=== PATIENT | female | born 1940 | race African-American/Black ===

== ENCOUNTER 2016-04-09 00:19 | Inpatient (IN) | payer MEDICARE ==
[~2016-04-09] VITALS: Ht 162.6 cm; Wt 54.4 kg
[2016-04-09] MEDS ORDERED: DEXTROSE 50%-WATER 50 ML DISP.SYRIN IV ONE (00:30)
[2016-04-09] MEDS ORDERED: DEXTROSE 50%-WATER 50 ML DISP.SYRIN ONE ×3 (00:35→01:18)
[2016-04-09 01:06] LABS: BASOPHILS # (AUTO) 0.2 /CMM (0.0-0.2); DIFF TOTAL % 100 %; EOSINOPHILS % (AUTO) 0.5 % (0.0-6.0); HEMATOCRIT 28 % (33-45); HEMOGLOBIN 8.8 g/dL (11.5-14.8); LYMPHOCYTES # (AUTO) 1.1 /CMM (0.8-4.8); LYMPHOCYTES % (AUTO) 14.1 % (20.0-44.0); MEAN CORPUSCULAR HEMOGLOBIN 27 PG (26.0-33.0); MEAN CORPUSCULAR HGB CONC 31 g/dl (31.0-36.0); MEAN CORPUSCULAR VOLUME 86 fL (82-100); MONOCYTES # (AUTO) 0.7 /CMM (0.1-1.30); MONOCYTES % (AUTO) 8.9 % (2.0-12.0); NEUTROPHILS % (AUTO) 74.5 % (43.0-81.0); PLATELET COUNT (AUTO) 234 /CMM (150-450); RED BLOOD CELL COUNT(AUTO) 3.29 MIL/uL (4.0-5.2); WHITE BLOOD COUNT (AUTO) 8.1 K/uL (4.3-11.0)
[2016-04-09] MEDS ORDERED: IV SET PRIMARY 1 EA INFUS.SET MC ONE ×2 (01:13→01:23)
[2016-04-09] MEDS ORDERED: IV NS 0.9% 500 ML IV ONE (01:13)
[2016-04-09 01:17] LABS: TROPONIN I 0.065 ng/mL (0.00-0.056)
[2016-04-09 01:19] LABS: ANION GAP 10 (5-14); CALCIUM, SERUM 8.4 mg/dL (8.5-10.1); CARBON DIOXIDE 32 mmol/L (21-32); CHLORIDE 106 mmol/L (98-107); CREATININE 1.1 mg/dL (0.6-1.3); GLUCOSE 112 mg/dL (74-106); POTASSIUM 3.7 mmol/L (3.5-5.1); SODIUM SERUM 144 mmol/L (136-145); UREA NITROGEN, BLOOD 22 mg/dL (7-18)
[2016-04-09 01:21] LABS: INR 0.94 (0.87-1.13); PROTHROMBIN TIME 10.2 SECS (9.5-12.7)
[2016-04-09 01:23] LABS: ACETAMINOPHEN 0 ug/ml (10-30); ALANINE AMINOTRANSFERASE 18 U/L (12-78); ALBUMIN 3.1 g/dL (3.4-5.0); ASPARTATE AMINOTRANSFERASE 21 U/L (15-37); BILIRUBIN,DIRECT 0.1 mg/dL (0.0-0.2); BILIRUBIN,TOTAL 0.3 mg/dL (0.2-1.0); INDIRECT BILIRUBIN 0.2 mg/dL (0.0-1.1); SALICYLATE 1.2 mg/dL (2.8-20.0); THYROID STIMULATING HORMONE 0.158 uIU/mL (0.358-3.74); TOTAL PROTEIN, SERUM 6.7 g/dL (6.4-8.2)
[2016-04-09] MEDS ORDERED: OCTREOTIDE 100 MCG/ML VIAL ONE ×2 (01:23→01:28)
[2016-04-09] MEDS ORDERED: IV NS 0.9% 50 ML IV ONE (01:23)
[2016-04-09] MEDS ORDERED: OCTREOTIDE 500 MCG/ML VIAL ONE (01:28)
[2016-04-09] MEDS ORDERED: IV NS 0.9% 250 ML IV ONE (01:29)
[2016-04-09] MEDS ORDERED: IV SET PRIMARY PUMP SET 1 EA INFUS.SET MC ONE ×2 (01:29→02:16)
[2016-04-09] MEDS ORDERED: DEXTROSE 50%-WATER 50 ML DISP.SYRIN IVP ONE ×2 (01:30→02:00)
[2016-04-09] MEDS ORDERED: OCTREOTIDE 50 MCG in IV NS 0.9% 50 ML IV ONE (01:30)
[2016-04-09] MEDS ORDERED: OCTREOTIDE 1,250 MCG in IV NS 0.9% 247.5 ML IV PRN ×2 (01:30→11:00)
[2016-04-09] MEDS ORDERED: IV NS 0.9% 1,000 ML BAG IV ONE (02:00)
[2016-04-09] MEDS ORDERED: IV 10% DEXTROSE 1,000 ML IV ONE (02:16)
[2016-04-09] MEDS ORDERED: ASPIRIN 325 MG TABLET PO ONE (02:30)
[2016-04-09] MEDS ORDERED: IV 10% DEXTROSE 1,000 ML IV PRN ×2 (02:30→11:00)
[2016-04-09] MEDS ORDERED: ASPIRIN 325 MG TABLET ONE (02:36)
[2016-04-09 03:04] LABS: KETONES,URINE NEGATIVE (NEGATIVE); LEUKOCYTE ESTERASE ,URINE 1+ (NEGATIVE); PH,URINE 6.5 (5.0-8.0)
[2016-04-09 03:13] LABS: ADD UA MICROSCOPIC YES
[2016-04-09 03:16] LABS: ADD URINE CULTURE YES
[2016-04-09] MEDS ORDERED: MAGNESIUM HYDROXIDE 30 ML UDC PO PRN (04:30)
[2016-04-09] MEDS ORDERED: ONDANSETRON HCL/PF 4 MG/2 ML VIAL IVP PRN (04:30)
[2016-04-09] MEDS ORDERED: ACETAMINOPHEN 325 MG TABLET PO PRN (04:30)
[2016-04-09] MEDS ORDERED: MAG HYDROX/AL HYDROX/SIMETH 30 ML UDC PO PRN (04:30)
[2016-04-09 05:00] VITALS: BP 177/78
[2016-04-09] MEDS ORDERED: hydrALAZINE HCL IV 20 MG VIAL ONE (05:43)
[2016-04-09] MEDS ORDERED: DEXTROSE 50%-WATER 50 ML DISP.SYRIN IVP PRN (06:00)
[2016-04-09] MEDS ORDERED: hydrALAZINE HCL IV 20 MG VIAL IV PRN (06:00)
[2016-04-09 08:00] VITALS: BP 137/59
[2016-04-09] MEDS: PANTOPRAZOLE 40 MG TABLET.DR PO SCH (09:20)
[2016-04-09] MEDS: ASPIRIN 81 MG TAB.CHEW PO SCH (09:20)
[2016-04-09 11:42] LABS: IRON, SERUM 18 ug/dl (50-175); PERCENT SATURATION 6 % (14-33); TOTAL IRON BINDING CAPACITY 287 ug/dl (250-450)
[2016-04-09 12:00] VITALS: BP 144/71
[2016-04-09] MEDS ORDERED: K PHOS NEUTRAL 250 MG TABLET PO ONE (12:30)
[2016-04-09] MEDS: BLOOD SUGAR DIAGNOSTIC 1 EACH STRIP IN SCH ×3 (13:17→22:00)
[2016-04-09 16:00] VITALS: BP 103/54
[2016-04-09] MEDS ORDERED: HALOPERIDOL LACTATE INJ 5 MG/ML VIAL IM PRN (18:30)
[2016-04-09] MEDS: HALOPERIDOL LACTATE INJ 5 MG/ML VIAL IM PRN (19:52)
[2016-04-10] VITALS (8 sets, daily range): BP systolic 91–133; BP diastolic 62–88
[2016-04-10] MEDS: HALOPERIDOL LACTATE INJ 5 MG/ML VIAL IM PRN (03:50)
[2016-04-10] MEDS: BLOOD SUGAR DIAGNOSTIC 1 EACH STRIP IN SCH ×4 (07:30→21:22)
[2016-04-10] MEDS: PANTOPRAZOLE 40 MG TABLET.DR PO SCH (07:55)
[2016-04-10] MEDS: ASPIRIN 81 MG TAB.CHEW PO SCH (07:55)
[2016-04-10] MEDS ORDERED: OLANZAPINE 5 MG/TAB.RAPDIS PO SCH (22:00)
[2016-04-11 05:19] LABS: T3, FREE 1.6 pg/mL (2.0-4.4)
[2016-04-11] MEDS: BLOOD SUGAR DIAGNOSTIC 1 EACH STRIP IN SCH ×2 (05:23→11:42)
[2016-04-11 08:00] VITALS: BP 136/87
[2016-04-11] MEDS: ASPIRIN 81 MG TAB.CHEW PO SCH (08:06)
[2016-04-11] MEDS: PANTOPRAZOLE 40 MG TABLET.DR PO SCH (08:06)
[2016-04-11 12:00] VITALS: BP 131/85
== END 2016-04-11 16:34 | disposition home or self-care (01) | DRG 640 ==
LOC: EDSEX 00:20 → ER 00:20 → TELE-TD 04:30 → TELE1 09:00
PROVIDERS: ADMIT Nurse Practitioner Acute Care; ATTEND Nurse Practitioner Acute Care
DX: E16.2 Hypoglycemia, unspecified (principal); I21.4 Non-ST elevation (NSTEMI) myocardial infarction; E44.0 Moderate protein-calorie malnutrition; E04.9 Nontoxic goiter, unspecified; F29 Unspecified psychosis not due to a substance or known physiological condition; D63.8 Anemia in other chronic diseases classified elsewhere; Z91.19 Patient's noncompliance with other medical treatment and regimen; I10 Essential (primary) hypertension; E88.09 Other disorders of plasma-protein metabolism, not elsewhere classified; E03.9 Hypothyroidism, unspecified; F43.20 Adjustment disorder, unspecified; Z68.20 Body mass index [BMI] 20.0-20.9, adult; R93.5 Abnormal findings on diagnostic imaging of other abdominal regions, including retroperitoneum
CPT/HCPCS: 36415; 71010-TC; 80048-TC; 80061-TC; 80076-TC; 81000-TC; 82533; 82962-TC; 83540-TC; 83735-TC; 84100-TC; 84439-TC; 84443-TC; 84481; 84484-TC; 85025-TC; 85730-TC; 87081-TC; 87086-TC; 87186-TC; A4216; A4606; G6038-TC; G6039-TC; G6040-TC; J0360; J1630; J2354; J3490; J7040; J7050; Z7610

== ENCOUNTER 2017-03-08 21:11 | Inpatient (IN) | payer MEDICARE ==
[~2017-03-08] VITALS: Ht 162.6 cm; Wt 64.0 kg
[2017-03-08] MEDS ORDERED: ACETAMINOPHEN 325 MG TABLET PO PRN (21:30)
[2017-03-08] MEDS ORDERED: MAGNESIUM HYDROXIDE 30 ML UDC PO PRN (21:30)
[2017-03-08] MEDS ORDERED: MAG HYDROX/AL HYDROX/SIMETH 30 ML UDC PO PRN (21:30)
--- NOTE | 2017-03-08 21:40 | NUR ---
ADMITTED DIRECTLY FROM [facility], CAME TO THE UNIT AT 2140 VIA GURNEY ACCOMPANIED BY 2 PARAMEDICS. PATIENT ADMITTED ON 5150 HOLD FOR GD. UPON FACE TO FACE PATIENT WAS FOUND AT THE BUS STATION [place], MALODOROUS, DISHEVELED. YELLING AND SCREAMING AND HAS NO PLAN FOR SELF CARE. PATIENT IS ALERT, AWAKE, VERY UNCOOPERATIVE, REFUSED TO ANSWER QUESTIONNAIRES, UNABLE TO OBTAIN PERTINENT INFORMATIONS. REFUSED SKIN ASSESSMENT, AND REFUSED PHOTO TAKEN. REFUSED CARE. RESPIRATION EVEN, BREATHING PATTERN NON-LABORED, NO APPARENT DISTRESS NOTED. SHOWS NO S/S OF ANY PAIN. PATIENT IS UNDER THE PSYCHIATRIC CARE OF DR. GONZALEZ AND UNDER THE MEDICAL CARE OF DR. GUTHRIE. BELONGINGS WERE INVENTORIED AND CHECKED FOR CONTRABAND. VALUABLES PLACED ON THE SAFE. DR. GUTHRIE NOTIFIED OF ADMISSION, , MED RECON DONE. CALLED HER SON 3X, TELEPHONE NON-WORKING. UNABLE TO LEAVE A MESSAGE ABOUT HER ADMISSION TO THE UNIT. BED LOCKED AND PLACED ON LOWEST POSITION. WILL CONTINUE TO MONITOR Q 15 MINS. TO MAINTAIN SAFETY.
[2017-03-08] MEDS ORDERED: LISI40TA4 PO (23:22)
[2017-03-08] MEDS ORDERED: FLUT1DIS3 IH (23:22)
[2017-03-08] MEDS ORDERED: RANI150C4 PO (23:22)
[2017-03-08] MEDS ORDERED: NITR0.4T48 SL (23:22)
[2017-03-08] MEDS ORDERED: ASPI-1169 PO (23:22)
[2017-03-08] MEDS ORDERED: TRAM50TA2 PO (23:22)
[2017-03-08] MEDS ORDERED: HYDR-552 PO (23:22)
[2017-03-08] MEDS ORDERED: METO2.5T2 PO (23:22)
--- NOTE | 2017-03-09 00:11 | NUR ---
CALLED PATIENT'S SON, AMY AT [phone], THE NUMBER IS A NON-WORKING NUMBER.
[2017-03-09] MEDS ORDERED: NITROGLYCERIN 0.4 MG/TAB BOTTLE SL PRN (01:00)
[2017-03-09] MEDS ORDERED: HYDROCODONE/APAP 5/325MG 1 EACH TABLET ONE (01:53)
[2017-03-09] MEDS: HYDROCODONE/APAP 5/325MG 1 EACH TABLET PO PRN ×3 (01:59→21:47)
--- NOTE | 2017-03-09 02:01 | NUR ---
AWAKE, IRRITABLE, GRIMACING, C/O BACK PAIN, 6/10 ON PAIN SCALE. NORCO 5/325 MG PO GIVEN.
--- NOTE | 2017-03-09 06:22 | NUR ---
PATIENT STILL REFUSING CARE THIS MORNING.
[2017-03-09 08:00] VITALS: BP 120/77
[2017-03-09] MEDS ORDERED: FLUTICASONE/SALMETEROL DISKUS IH SCH (09:00)
[2017-03-09] MEDS: FAMOTIDINE (20 MG) 20 MG TABLET PO SCH ×2 (09:15→21:03)
[2017-03-09] MEDS: METOLAZONE 2.5 MG TABLET PO SCH (09:15)
[2017-03-09] MEDS: LISINOPRIL (10MG) 10 MG TABLET PO SCH (09:15)
[2017-03-09] MEDS: clonazePAM 0.5 MG TABLET PO PRN (09:15)
--- NOTE | 2017-03-09 09:15 | NUR ---
RN NOTES ADMINISTERED KLONOPIN 0.5 MG PO PRN FOR YELLING, PARANOID, IRRITABLE, HARD TO FOLLOW DIRECTION, BP-120/50, P-77, ALSO ADMINISTERED SCHEDULED MEDICATION, SAFETY PRECAUTION MAINTAINED ALL THE TIME. CALL LIGHT WITHIN TO REACH.
[2017-03-09] MEDS: ASPIRIN 81 MG TAB.CHEW PO SCH (09:16)
[2017-03-09] MEDS: FLUTICASONE/VILANTEROL 1 EACH BLST.W.DEV IH SCH (09:22)
--- NOTE | 2017-03-09 09:42 | NUR ---
RN NOTES MRSA OF NARES SWAB TAKEN, CALLED LAB FOR FULL CHARGE BOOKKEEPER.
--- NOTE | 2017-03-09 11:20 | NUR ---
Initial Discharge Plan: Patient's address is listed on face sheet as [address] [place] [address]. Patient does not wish to discuss where she lives, nor does she want alternative placement. Patient provided SW with the following number: [phone]. SW called the number and the number was connected to nephew, Babar. Babar stated that he had not seen his aunt for the past three months and that no one had any contact with her. SW to follow up with MD and facilitate safe and proper discharge.
[2017-03-09] MEDS: OLANZAPINE 2.5 MG TABLET PO SCH ×2 (12:30→17:23)
--- NOTE | 2017-03-09 13:17 | NUR ---
RN NOTES PATIENT COMPLAINING OF GENERALIZED PAIN 10/26 , ADMINISTERED NARCO 5/325 MG PO PRN PER PATIENT REQUEST, V/S TAKEN BP-120/62, P-77, ENCOURAGED TO INCREASE FLUID INTAKE. CONTINUED MONITORING.
[2017-03-09 16:07] VITALS: BP 139/66
[2017-03-09 20:00] VITALS: BP 141/96
--- NOTE | 2017-03-09 20:05 | NUR ---
PATIENT AWAKE, ALERT, ORIENTED X2-3. UNCOOPERATIVE WITH HER CARE, YELLS AND SCREAMS AT STAFF.
[2017-03-10 08:06] VITALS: BP 84/52
[2017-03-10] MEDS: METOLAZONE 2.5 MG TABLET PO SCH (09:08)
[2017-03-10] MEDS: FAMOTIDINE (20 MG) 20 MG TABLET PO SCH ×2 (09:09→21:13)
[2017-03-10] MEDS: clonazePAM 0.5 MG TABLET PO PRN ×2 (09:09→21:37)
[2017-03-10] MEDS: OLANZAPINE 2.5 MG TABLET PO SCH ×3 (09:09→17:32)
[2017-03-10] MEDS: ASPIRIN 81 MG TAB.CHEW PO SCH (09:09)
[2017-03-10] MEDS: LISINOPRIL (10MG) 10 MG TABLET PO SCH (09:09)
--- NOTE | 2017-03-10 09:09 | NUR ---
RN NOTES ADMINISTERED KLONOPIN 0.5 MG PO PRN FOR ANXIETY, YELLING,PARANOID, V/S TAKEN BP- 120/65, P-94, CONTINUED MONITORING.
[2017-03-10] MEDS: FLUTICASONE/VILANTEROL 1 EACH BLST.W.DEV IH SCH (09:14)
[2017-03-10] MEDS: HYDROCODONE/APAP 5/325MG 1 EACH TABLET PO PRN ×2 (11:47→18:30)
--- NOTE | 2017-03-10 11:47 | NUR ---
RN NOTES ADMINISTERED NARCO 5/325 MG PO PRN FOR GENERALIZED PAIN 10/26, PER PATIENT REQUEST, V/S TAKEN BP -101/50, P-75. CONTINUED MONITORING. ENCOURAGED TO INCREASE FLUID INTAKE.
--- NOTE | 2017-03-10 12:37 | NUR ---
CALLED GILLIAN AT [phone] AN INTERPRETER FOR THE [employer] FOR [employer]TR[employer] AND SAID SHE WILL COME TODAY.
[2017-03-10 13:41] LABS: HEMATOCRIT 35 % (33-45); HEMOGLOBIN 10.4 g/dL (11.5-14.8); MEAN CORPUSCULAR HEMOGLOBIN 24 PG (26.0-33.0); MEAN CORPUSCULAR HGB CONC 30 g/dl (31.0-36.0); MEAN CORPUSCULAR VOLUME 79 fL (82-100); PLATELET COUNT (AUTO) 194 /CMM (150-450); RDW COEFFICIENT OF VARIATION 17.3 (11.5-15.0); WHITE BLOOD COUNT (AUTO) 8.6 K/uL (4.3-11.0)
[2017-03-10 14:17] LABS: ALANINE AMINOTRANSFERASE 17 U/L (12-78); ALBUMIN 2.4 g/dL (3.4-5.0); ALKALINE PHOSPHATASE 64 U/L (46-116); ASPARTATE AMINOTRANSFERASE 17 U/L (15-37); BILIRUBIN,TOTAL 0.4 mg/dL (0.2-1.0); CALCIUM, SERUM 8.9 mg/dL (8.5-10.1); CARBON DIOXIDE 31 mmol/L (21-32); CHLORIDE 101 mmol/L (98-107); CREATININE 1.1 mg/dL (0.6-1.3); GLUCOSE 115 mg/dL (74-106); POTASSIUM 3.1 mmol/L (3.5-5.1); SODIUM SERUM 138 mmol/L (136-145); TOTAL PROTEIN, SERUM 7.3 g/dL (6.4-8.2); UREA NITROGEN, BLOOD 25 mg/dL (7-18)
[2017-03-10 14:20] LABS: LYMPHOCYTES % (MANUAL) 24 % (16-48); MONOCYTES % (MANUAL) 7 % (0-11.0); NEUTROPHILS % (MANUAL) 69 (42-76)
--- NOTE | 2017-03-10 15:00 | NUR ---
RN NOTES PAGED Dr. COLUNGA BECAUSE OF GET LOW LAB RESULT POTASSIUM LEVEL IS 3.1. WAITING CALL BACK. AND GET ORDER FOR COVERAGE FROM PHARMACIST DORA Gomez STEFANO X1.
[2017-03-10 16:00] VITALS: BP 116/67
[2017-03-10] MEDS: POTASSIUM CHLORIDE 20 MEQ TAB.PRT.SR PO SCH (17:32)
--- NOTE | 2017-03-10 18:30 | NUR ---
rn notes administered narco 5/325 mg po prn for chronic generalized pain 10/26, per patient request, v/s taken bp -116/67, p-89, encouraged to increase fluid intake, continued monitoring.
[2017-03-10 20:00] VITALS: BP 104/60
[2017-03-11] MEDS: TEMAZEPAM 7.5 MG CAPSULE PO PRN ×2 (00:43→23:31)
[2017-03-11 08:00] VITALS: BP 114/75
[2017-03-11] MEDS: METOLAZONE 2.5 MG TABLET PO SCH (08:53)
[2017-03-11] MEDS: OLANZAPINE 2.5 MG TABLET PO SCH (08:53)
[2017-03-11] MEDS: ASPIRIN 81 MG TAB.CHEW PO SCH (08:54)
[2017-03-11] MEDS: FAMOTIDINE (20 MG) 20 MG TABLET PO SCH ×2 (08:54→21:12)
[2017-03-11] MEDS: LISINOPRIL (10MG) 10 MG TABLET PO SCH (08:54)
[2017-03-11] MEDS: clonazePAM 0.5 MG TABLET PO PRN (08:57)
--- NOTE | 2017-03-11 09:00 | NUR ---
GPS/RN-NOTES NOTED PATIENT WITH AGGRESSIVE BEHAVIOR , HITTING STAFF WITH BOTH HANDS,RESISTIVE TO CARE. KLONOPIN 0.5MG P.O GIVEN PRN ORDER. WILL CONT. MONITORING FOR SAFETY AND BEHAVIOR.
[2017-03-11] MEDS: FLUTICASONE/VILANTEROL 1 EACH BLST.W.DEV IH SCH (09:09)
[2017-03-11] MEDS ORDERED: LORAZEPAM INJ 2 MG/ML VIAL IM ONE (11:00)
[2017-03-11] MEDS ORDERED: HALOPERIDOL LACTATE INJ 5 MG/ML VIAL IM ONE (11:00)
[2017-03-11] MEDS ORDERED: BENZTROPINE MESYLATE (2MG/2ML) 2 MG/2 ML AMPUL IM ONE (11:00)
--- NOTE | 2017-03-11 11:17 | NUR ---
GPS/RN-NOTES NOTED PATIENT UN COOPERATIVE WITH CARE , AGGRESSIVE TOWARDS STAFF HITTING WITH BOTH HANDS,KICKING AND SPITTING,UNABLE TO REDIRECT PATIENT. DR. HICKS IN THE UNIT WITH ORDERS OF ATIVAN 1MG IM,COGENTIN 1MG IM AND HALDOL 5MG IM X1. THREE STAFF HELP TO ADMINISTERED MEDICATIONS DUE TO AGGRESSIVE BEHAVIOR,ADMINISTERED ON LEFT DELTOID. WILL CONT. MONITORING FOR SAFETY AND BEHAVIOR.
--- NOTE | 2017-03-11 12:00 | NUR ---
GPS/RN-NOTES UNABLE TO DO IN AND OUT CATH. DUE TO PATIENT BEHAVIOR, AGGRESSIVE AND COMBATIVE. WILL TRY AGAIN LATER.
[2017-03-11 16:07] VITALS: BP 99/59
[2017-03-11] MEDS: BENZTROPINE MESYLATE (1 MG) 1 MG TABLET PO SCH (17:47)
[2017-03-11] MEDS: risperiDONE-M 0.5 MG TAB.RAPDIS PO SCH (17:47)
--- NOTE | 2017-03-11 18:01 | NUR ---
GPS/RN-NOTES STILL UNABLE TO DO IN AND OUT CATH. PATIENT GETS AGGRESSIVE AND COMBATIVE. WILL ENDORSE TO INCOMING NURSE FOR CONTINUITY OF CARE.
[2017-03-11 19:48] VITALS: BP 99/60
[2017-03-12 03:43] VITALS: BP 105/65
--- NOTE | 2017-03-12 06:21 | NUR ---
GPS/RN-NOTES DURING SHIFT ,STILL UNABLE TO DO IN AND OUT CATH. PATIENT GETS AGGRESSIVE AND COMBATIVE. WILL ENDORSE TO INCOMING NURSE FOR CONTINUITY OF CARE.
[2017-03-12 08:00] VITALS: BP 109/74
[2017-03-12] MEDS: LISINOPRIL (10MG) 10 MG TABLET PO SCH (09:00)
[2017-03-12] MEDS: FLUTICASONE/VILANTEROL 1 EACH BLST.W.DEV IH SCH (09:47)
[2017-03-12] MEDS: FAMOTIDINE (20 MG) 20 MG TABLET PO SCH ×2 (09:49→21:12)
[2017-03-12] MEDS: ASPIRIN 81 MG TAB.CHEW PO SCH (09:49)
[2017-03-12] MEDS: risperiDONE-M 0.5 MG TAB.RAPDIS PO SCH (09:49)
[2017-03-12] MEDS: METOLAZONE 2.5 MG TABLET PO SCH (09:49)
[2017-03-12] MEDS: BENZTROPINE MESYLATE (1 MG) 1 MG TABLET PO SCH ×2 (09:49→16:48)
[2017-03-12] MEDS: clonazePAM 0.5 MG TABLET PO PRN (09:49)
--- NOTE | 2017-03-12 11:00 | NUR ---
GPS/RN DR HICKS AND DR COLUNGA MADE AWARE OF NURSERS UNABLE TO COLLECT URINE SPECIMEN. DR COLUNGA WILL START PT ON ANTIBIOTICS EMPIRICALLY
[2017-03-12] MEDS ORDERED: CEPHALEXIN MONOHYDRATE 250 MG CAPSULE PO SCH (13:00)
[2017-03-12] MEDS ORDERED: CEPHALEXIN MONOHYDRATE 500 MG CAPSULE PO SCH (13:37)
[2017-03-12] MEDS: HALOPERIDOL 5 MG TABLET PO SCH ×2 (14:34→16:48)
[2017-03-12] MEDS: CEPHALEXIN MONOHYDRATE 500 MG CAPSULE PO SCH ×2 (14:34→17:09)
[2017-03-12] MEDS: LORAZEPAM 0.5 MG TABLET PO SCH ×2 (14:40→16:48)
[2017-03-12 16:00] VITALS: BP 113/60
[2017-03-12 21:45] VITALS: BP 148/67
[2017-03-13] MEDS: CEPHALEXIN MONOHYDRATE 500 MG CAPSULE PO SCH ×5 (00:03→23:02)
[2017-03-13] MEDS ORDERED: CEPHALEXIN MONOHYDRATE 500 MG CAPSULE PO ONE (05:37)
[2017-03-13] MEDS: FAMOTIDINE (20 MG) 20 MG TABLET PO SCH ×2 (08:35→21:15)
[2017-03-13] MEDS: HALOPERIDOL 5 MG TABLET PO SCH ×2 (08:35→16:47)
[2017-03-13] MEDS: LORAZEPAM 0.5 MG TABLET PO SCH ×2 (08:36→16:47)
[2017-03-13] MEDS: BENZTROPINE MESYLATE (1 MG) 1 MG TABLET PO SCH ×2 (08:36→16:47)
[2017-03-13] MEDS: LISINOPRIL (10MG) 10 MG TABLET PO SCH (08:36)
[2017-03-13] MEDS: METOLAZONE 2.5 MG TABLET PO SCH (08:36)
[2017-03-13] MEDS: FLUTICASONE/VILANTEROL 1 EACH BLST.W.DEV IH SCH (08:37)
[2017-03-13] MEDS: ASPIRIN 81 MG TAB.CHEW PO SCH (08:37)
[2017-03-13] MEDS ORDERED: DIVALPROEX SODIUM 125 MG CAP.SPRINK PO SCH (09:30)
[2017-03-13] MEDS ORDERED: HALOPERIDOL 5 MG TABLET PO ONE (11:00)
--- NOTE | 2017-03-13 11:30 | NUR ---
WOUND CARE CONSULT: PT AGITATED AND REFUSED SKIN ASSESSMENT. PT NOTED TO HAVE DRY ABRASION TO LEFT LOWER LEG AND BRUISE TO RT LOWER LEG. CURRENT TRENT SCORE IS 19.
[2017-03-13] MEDS: DIVALPROEX SODIUM 125 MG CAP.SPRINK PO SCH ×2 (12:08→16:47)
[2017-03-13 16:02] VITALS: BP 107/66
--- NOTE | 2017-03-13 19:30 | NUR ---
GPS RN NOTE, RECEIVED PATIENT AWAKE AND IN BED NO S/S OR COMPLAINTS OF PAIN AT THIS TIME. PATIENT IS DISPLAYING NO S/S OF APPARENT DISTRESS AT THIS TIME. PATIENT BREATHING IS UNLABORED WITH EQUAL RISE AND FALL OF THE CHEST. PATIENT IS ALERT AND ORIENTED X 1 ON ROOM AIR WITH A SPOO2 94 %. PATIENT IS COMPLAINT WITH MEDICATION, CONFUSED, EASILY AGITATED, ANXIOUS AT TIMES, UNCOOPERATIVE, DISORGANIZED, AND NEEDS REORIENTATION. PATIENT DENIES SUICIDE IDEATIONS AND HOMICIDAL IDEATIONS AT THIS TIME. PATIENT ASSISTED WITH TURNING AND REPOSITIONING Q2HR AND PRN FOR COMFORT AND CIRCULATION. PATIENT HAS NO NEEDS AT THIS TIME. PATIENT EDUCATED ON THE USE OF THE CALL LEI. PATIENT BED SIDE RAILS UP X 2 FOR SAFETY. PATIENT BED IS LOCKED AND LOW WILL CONTINUE TO MONITOR AND MAINTAIN SAFETY Q15 MIN WITH THE HELP OF STAFF.
[2017-03-13 19:46] VITALS: BP 100/59
[2017-03-13] MEDS: TEMAZEPAM 7.5 MG CAPSULE PO PRN (21:15)
--- NOTE | 2017-03-13 21:15 | NUR ---
GPS RN NOTE, PATIENT HAS A COMPLAINT OF NOT BEING ABLE TO SLEEP AND IS REQUESTING A SLEEPING AID AT THIA TIME. PATIENT VITAL SIGNS ARE STABLE. GAVE RESTORIL 7.5 MG PO HS ORDERED. WILL REASSESS FOR INSOMNIA AND I WILL CONTINUE TO MONITOR THIS PATIENT.
[2017-03-14] MEDS: CEPHALEXIN MONOHYDRATE 500 MG CAPSULE PO SCH ×4 (05:14→23:57)
[2017-03-14 08:00] VITALS: BP 100/63
[2017-03-14] MEDS: HALOPERIDOL 5 MG TABLET PO SCH ×2 (08:31→16:29)
[2017-03-14] MEDS: ASPIRIN 81 MG TAB.CHEW PO SCH (08:31)
[2017-03-14] MEDS: METOLAZONE 2.5 MG TABLET PO SCH (08:31)
[2017-03-14] MEDS: BENZTROPINE MESYLATE (1 MG) 1 MG TABLET PO SCH ×2 (08:31→16:29)
[2017-03-14] MEDS: DIVALPROEX SODIUM 125 MG CAP.SPRINK PO SCH ×3 (08:31→16:29)
[2017-03-14] MEDS: FAMOTIDINE (20 MG) 20 MG TABLET PO SCH ×2 (08:31→21:15)
[2017-03-14] MEDS: LORAZEPAM 0.5 MG TABLET PO SCH ×2 (08:32→16:29)
[2017-03-14] MEDS: LISINOPRIL (10MG) 10 MG TABLET PO SCH (08:33)
[2017-03-14] MEDS: FLUTICASONE/VILANTEROL 1 EACH BLST.W.DEV IH SCH (08:33)
[2017-03-14 09:25] LABS: CALCIUM, SERUM 9.3 mg/dL (8.5-10.1); CARBON DIOXIDE 29 mmol/L (21-32); CHLORIDE 98 mmol/L (98-107); CREATININE 1.3 mg/dL (0.6-1.3); GLUCOSE 104 mg/dL (74-106); MAGNESIUM 2.3 mg/dL (1.8-2.4); POTASSIUM 3.6 mmol/L (3.5-5.1); SODIUM SERUM 136 mmol/L (136-145); UREA NITROGEN, BLOOD 43 mg/dL (7-18)
[2017-03-14] MEDS: FERROUS SULFATE (325 MG) 325 MG/TAB TABLET PO SCH ×2 (09:27→16:29)
[2017-03-14 09:40] LABS: IRON, SERUM 47 ug/dl (50-175); TOTAL IRON BINDING CAPACITY 366 ug/dl (250-450)
--- NOTE | 2017-03-14 10:00 | NUR ---
RN-CO: OFFERED FLUID INTAKE.
[2017-03-14 11:01] LABS: THYROID STIMULATING HORMONE 0.214 uIU/mL (0.358-3.74)
--- NOTE | 2017-03-14 11:03 | NUR ---
Discharge Planning: SW attempted to have a conversation with patient regarding discharge planning. Patient repeatedly stated that she is "going to [place], [place]." SW redirected her several times. Patient then stated that she did not want any placement and that she was going to go to a motel. Patient became agitated. SW asked patient if she would be open to temporary placement at a facility, where she would receive physical therapy and other rehabilitative services. Patient stated that it might be alright with her, but that she still wanted to go to a motel.
--- NOTE | 2017-03-14 11:06 | NUR ---
Discharge Planning: SW faxed an inquiry to [facility] in admissions at [address] [address] at fax number [phone]. SW to follow up with status of referral.
--- NOTE | 2017-03-14 13:00 | NUR ---
RN-CO: ENCOURAGED FLUID INTAKE.
[2017-03-14 15:50] VITALS: BP 126/72
--- NOTE | 2017-03-14 16:30 | NUR ---
RN-CO: ENCOURAGE FLUID INTAKE.
[2017-03-14 20:20] VITALS: BP 153/78
[2017-03-14] MEDS: TEMAZEPAM 7.5 MG CAPSULE PO PRN (21:15)
[2017-03-15] MEDS: clonazePAM 0.5 MG TABLET PO PRN (05:11)
--- NOTE | 2017-03-15 05:11 | NUR ---
GPS RN NOTE, PATIENT HAS A COMPLAINT OF FEELING ANXIOUS AND IS REQUESTING MEDICATION AT THIS TIME. PATIENT VITAL SIGNS ARE STABLE. GAVE KLONOPIN 0.5MG PO Q4HR PRN ORDERED. WILL REASSESS FOR ANXIETY AND I WILL CONTINUE TO MONITOR THIS PATIENT.
[2017-03-15] MEDS: CEPHALEXIN MONOHYDRATE 500 MG CAPSULE PO SCH ×3 (05:31→18:29)
[2017-03-15 08:00] VITALS: BP 92/60
[2017-03-15] MEDS: BENZTROPINE MESYLATE (1 MG) 1 MG TABLET PO SCH ×2 (08:46→16:07)
[2017-03-15] MEDS: DIVALPROEX SODIUM 125 MG CAP.SPRINK PO SCH ×2 (08:46→12:30)
[2017-03-15] MEDS: METOLAZONE 2.5 MG TABLET PO SCH (08:46)
[2017-03-15] MEDS: HALOPERIDOL 5 MG TABLET PO SCH ×2 (08:46→16:07)
[2017-03-15] MEDS: FERROUS SULFATE (325 MG) 325 MG/TAB TABLET PO SCH ×2 (08:47→16:08)
[2017-03-15] MEDS: LISINOPRIL (10MG) 10 MG TABLET PO SCH (08:47)
[2017-03-15] MEDS: ASPIRIN 81 MG TAB.CHEW PO SCH (08:47)
[2017-03-15] MEDS: FAMOTIDINE (20 MG) 20 MG TABLET PO SCH ×2 (08:47→20:08)
[2017-03-15] MEDS: FLUTICASONE/VILANTEROL 1 EACH BLST.W.DEV IH SCH (09:08)
[2017-03-15] MEDS: LORAZEPAM 0.5 MG TABLET PO SCH (10:04)
--- NOTE | 2017-03-15 11:48 | NUR ---
Discharge Planning: SW was informed by [facility] in admissions that patient was accepted to [address] [address] / fax number [phone].
[2017-03-15 16:00] VITALS: BP 118/66
[2017-03-15] MEDS ORDERED: DIVALPROEX SODIUM 125 MG CAP.SPRINK PO SCH (17:00)
[2017-03-15 20:00] VITALS: BP 142/68
[2017-03-15] MEDS: LORAZEPAM 0.5 MG TABLET PO PRN (20:07)
[2017-03-16] MEDS: CEPHALEXIN MONOHYDRATE 500 MG CAPSULE PO SCH ×4 (06:56→17:05)
[2017-03-16 08:00] VITALS: BP 149/97
[2017-03-16] MEDS: DIVALPROEX SODIUM 125 MG CAP.SPRINK PO SCH ×3 (08:17→17:05)
[2017-03-16] MEDS: ASPIRIN 81 MG TAB.CHEW PO SCH (08:17)
[2017-03-16] MEDS: LISINOPRIL (10MG) 10 MG TABLET PO SCH (08:18)
[2017-03-16] MEDS: METOLAZONE 2.5 MG TABLET PO SCH (08:18)
[2017-03-16] MEDS: BENZTROPINE MESYLATE (1 MG) 1 MG TABLET PO SCH ×2 (08:18→17:04)
[2017-03-16] MEDS: FERROUS SULFATE (325 MG) 325 MG/TAB TABLET PO SCH ×2 (08:21→17:05)
[2017-03-16] MEDS: HALOPERIDOL 5 MG TABLET PO SCH ×2 (08:21→17:04)
[2017-03-16] MEDS: FAMOTIDINE (20 MG) 20 MG TABLET PO SCH ×2 (08:54→20:48)
[2017-03-16] MEDS: FLUTICASONE/VILANTEROL 1 EACH BLST.W.DEV IH SCH (08:57)
[2017-03-16 16:00] VITALS: BP 109/63
[2017-03-16 20:00] VITALS: BP 119/64
[2017-03-17] MEDS: CEPHALEXIN MONOHYDRATE 500 MG CAPSULE PO SCH ×4 (01:57→17:52)
[2017-03-17 08:00] VITALS: BP 114/91
[2017-03-17] MEDS: DIVALPROEX SODIUM 125 MG CAP.SPRINK PO SCH ×3 (09:13→16:44)
[2017-03-17] MEDS: FERROUS SULFATE (325 MG) 325 MG/TAB TABLET PO SCH ×2 (09:13→16:43)
[2017-03-17] MEDS: FLUTICASONE/VILANTEROL 1 EACH BLST.W.DEV IH SCH (09:13)
[2017-03-17] MEDS: FAMOTIDINE (20 MG) 20 MG TABLET PO SCH ×2 (09:13→21:34)
[2017-03-17] MEDS: ASPIRIN 81 MG TAB.CHEW PO SCH (09:13)
[2017-03-17] MEDS: BENZTROPINE MESYLATE (1 MG) 1 MG TABLET PO SCH ×2 (09:14→16:43)
[2017-03-17] MEDS: METOLAZONE 2.5 MG TABLET PO SCH (09:19)
[2017-03-17] MEDS: LISINOPRIL (10MG) 10 MG TABLET PO SCH (09:19)
[2017-03-17] MEDS: HALOPERIDOL 5 MG TABLET PO SCH ×2 (09:19→16:43)
[2017-03-17 11:08] LABS: ALANINE AMINOTRANSFERASE 17 U/L (12-78); ALBUMIN 2.9 g/dL (3.4-5.0); ALKALINE PHOSPHATASE 71 U/L (46-116); ASPARTATE AMINOTRANSFERASE 15 U/L (15-37); BILIRUBIN,TOTAL 0.4 mg/dL (0.2-1.0); CALCIUM, SERUM 9.3 mg/dL (8.5-10.1); CARBON DIOXIDE 33 mmol/L (21-32); CHLORIDE 103 mmol/L (98-107); CREATININE 1.1 mg/dL (0.6-1.3); GLUCOSE 122 mg/dL (74-106); POTASSIUM 4.2 mmol/L (3.5-5.1); SODIUM SERUM 143 mmol/L (136-145); TOTAL PROTEIN, SERUM 8.1 g/dL (6.4-8.2); UREA NITROGEN, BLOOD 33 mg/dL (7-18)
[2017-03-17 11:09] LABS: VALPROIC ACID 45 ug/mL (50-100)
[2017-03-17 11:10] LABS: BASOPHILS % (AUTO) 0.1 % (0.0-2.0); EOSINOPHILS # (AUTO) 0.1 /CMM (0.0-0.7); HEMATOCRIT 33 % (33-45); HEMOGLOBIN 10.2 g/dL (11.5-14.8); LYMPHOCYTES # (AUTO) 1.4 /CMM (0.8-4.8); LYMPHOCYTES % (AUTO) 21.8 % (20.0-44.0); MEAN CORPUSCULAR HEMOGLOBIN 24 PG (26.0-33.0); MEAN CORPUSCULAR HGB CONC 31 g/dl (31.0-36.0); MEAN CORPUSCULAR VOLUME 77 fL (82-100); MONOCYTES # (AUTO) 0.5 /CMM (0.1-1.30); MONOCYTES % (AUTO) 7.3 % (2.0-12.0); NEUTROPHILS # (AUTO) 4.6 /CMM (1.8-8.9); NEUTROPHILS % (AUTO) 69.8 % (43.0-81.0); PLATELET COUNT (AUTO) 455 /CMM (150-450); RDW COEFFICIENT OF VARIATION 16.2 (11.5-15.0); RED BLOOD CELL COUNT(AUTO) 4.26 MIL/uL (4.0-5.2); WHITE BLOOD COUNT (AUTO) 6.6 K/uL (4.3-11.0)
[2017-03-17 16:00] VITALS: BP 106/65
[2017-03-17 20:00] VITALS: BP 111/68
[2017-03-18] MEDS: CEPHALEXIN MONOHYDRATE 500 MG CAPSULE PO SCH ×4 (00:04→17:57)
[2017-03-18 08:00] VITALS: BP 132/75
[2017-03-18] MEDS: HALOPERIDOL 5 MG TABLET PO SCH ×2 (08:57→16:07)
[2017-03-18] MEDS: FLUTICASONE/VILANTEROL 1 EACH BLST.W.DEV IH SCH (08:57)
[2017-03-18] MEDS: ASPIRIN 81 MG TAB.CHEW PO SCH (08:57)
[2017-03-18] MEDS: METOLAZONE 2.5 MG TABLET PO SCH (08:57)
[2017-03-18] MEDS: FAMOTIDINE (20 MG) 20 MG TABLET PO SCH ×2 (08:58→21:46)
[2017-03-18] MEDS: BENZTROPINE MESYLATE (1 MG) 1 MG TABLET PO SCH ×2 (08:58→16:07)
[2017-03-18] MEDS: DIVALPROEX SODIUM 125 MG CAP.SPRINK PO SCH ×3 (08:58→16:07)
[2017-03-18] MEDS: FERROUS SULFATE (325 MG) 325 MG/TAB TABLET PO SCH ×2 (08:58→16:07)
[2017-03-18] MEDS: LISINOPRIL (10MG) 10 MG TABLET PO SCH (08:59)
[2017-03-18 15:56] VITALS: BP 101/60
[2017-03-18 20:37] VITALS: BP 122/62
[2017-03-19] MEDS: CEPHALEXIN MONOHYDRATE 500 MG CAPSULE PO SCH ×5 (00:32→23:02)
--- NOTE | 2017-03-19 05:02 | NUR ---
GPS RN NOTES DURING SHIFT OFFERED TO PT. SLEEPING PILLS AND REFUSED TO TAKE , PT. BEHAVIOR WAS VERY UNCOOPERATIVE.
[2017-03-19 08:00] VITALS: BP 138/68
[2017-03-19] MEDS: FAMOTIDINE (20 MG) 20 MG TABLET PO SCH ×2 (08:53→20:50)
[2017-03-19] MEDS: BENZTROPINE MESYLATE (1 MG) 1 MG TABLET PO SCH ×2 (08:54→17:19)
[2017-03-19] MEDS: LISINOPRIL (10MG) 10 MG TABLET PO SCH (08:54)
[2017-03-19] MEDS: ASPIRIN 81 MG TAB.CHEW PO SCH (08:54)
[2017-03-19] MEDS: METOLAZONE 2.5 MG TABLET PO SCH (08:54)
[2017-03-19] MEDS: DIVALPROEX SODIUM 125 MG CAP.SPRINK PO SCH ×3 (08:54→17:19)
[2017-03-19] MEDS: FERROUS SULFATE (325 MG) 325 MG/TAB TABLET PO SCH ×2 (08:55→17:19)
[2017-03-19] MEDS: FLUTICASONE/VILANTEROL 1 EACH BLST.W.DEV IH SCH (08:55)
[2017-03-19] MEDS: HALOPERIDOL 5 MG TABLET PO SCH ×2 (08:55→17:19)
[2017-03-19 15:54] VITALS: BP 100/71
[2017-03-19 22:03] VITALS: BP 128/65
[2017-03-20] MEDS: CEPHALEXIN MONOHYDRATE 500 MG CAPSULE PO SCH ×3 (05:38→17:08)
[2017-03-20 08:00] VITALS: BP 100/70
--- NOTE | 2017-03-20 08:27 | NUR ---
DISCHARGE NOTE: [facility], [address] [place] [address] / fax number [phone] via ambulance transportation arranged by social work associate through [employer] (formerly [employer]), trip # [id number]. Patient does not have family that is involved in her care / discharge plans. When SW initially spoke with patient's family, she was informed that they are not in contact and "have no idea" what is going on with her. Patient will be followed by efficiency analyst Dr. Malloy [address] [facility] [address], [place] [phone] at the facility. Patient will also be under the care of psychiatrist Dr. Bourne [address] [facility] [address], [place] [address], [phone] Patient was referred to a smoking cessation group [id number] [facility], room [address], [place] [address] and was encourage to present on March 22 at 7pm. Additional resources for smoking cessation included [employer], 800-LUNGUSA and [employer], .
[2017-03-20] MEDS: BENZTROPINE MESYLATE (1 MG) 1 MG TABLET PO SCH ×2 (09:19→17:00)
[2017-03-20] MEDS: ASPIRIN 81 MG TAB.CHEW PO SCH (09:19)
[2017-03-20] MEDS: DIVALPROEX SODIUM 125 MG CAP.SPRINK PO SCH ×3 (09:20→17:00)
[2017-03-20] MEDS: LISINOPRIL (10MG) 10 MG TABLET PO SCH (09:20)
[2017-03-20] MEDS: FERROUS SULFATE (325 MG) 325 MG/TAB TABLET PO SCH ×2 (09:20→17:00)
[2017-03-20] MEDS: FAMOTIDINE (20 MG) 20 MG TABLET PO SCH (09:20)
[2017-03-20] MEDS: METOLAZONE 2.5 MG TABLET PO SCH (09:21)
[2017-03-20] MEDS: FLUTICASONE/VILANTEROL 1 EACH BLST.W.DEV IH SCH (09:21)
[2017-03-20] MEDS: HALOPERIDOL 5 MG TABLET PO SCH ×2 (09:21→17:00)
[2017-03-20] MEDS: LORAZEPAM 0.5 MG TABLET PO PRN (13:29)
--- NOTE | 2017-03-20 13:29 | NUR ---
GPS/RN PATIENT IS RESTLESS AND ANXIOUS, SHOUTING AT STAFF. ADMINISTERED ATIVAN 0.5 MG PO , WILL CONTINUE TO MONITOR.
--- NOTE | 2017-03-20 14:30 | NUR ---
GPS/RN 1700 MEDICATION NOT ADMINISTERED DUE TO PATIENT DISCHARGE. Addendum: 03/20/17 at 1749 by GABI SMITH RN [id number]
[2017-03-20 15:36] VITALS: BP 149/97
--- NOTE | 2017-03-20 16:30 | NUR ---
GPS/RN PATIENT CLEARED FOR DISCHARGE TO [facility] BY DR GONZALEZ AND DR COLUNGA. MEDICATIONS RECONCILED BY BOTH DR'S, PATIENT REFUSED TO SIGN D/C PAPER WORK, COSIGNED BY 2 RN. MEDICATIONS, EXIT CARE PACKET AND AFTERCARE PLAN EXPLAINED TO PATIENT.BELONGINGS AND VALUABLES RETURNED TO PATIENT AND IN THE POSSESSION OF EMT. REPORT CALLED TO FACILITY SPOKE WITH JOHN, FAXED PRESCRIPTIONS TO FACILITY. D/C PICTURE OF LEFT MEDELLIN SKIN TEAR TAKEN, PATIENT DENIES SI/HI/AH UPON DISCHARGE, NO AGITATION AT THIS TIME, PATIENT LEFT UNIT COOPERATIVE WITH NO DISTRESS NOTED AND EMT AT SIDE.
== END 2017-03-20 16:45 | DRG 885 ==
LOC: GPS 21:11
PROVIDERS: ADMIT Psychiatry & Neurology Psychiatry
DX: F31.64 Bipolar disorder, current episode mixed, severe, with psychotic features (principal); I11.0 Hypertensive heart disease with heart failure; N17.0 Acute kidney failure with tubular necrosis; E44.0 Moderate protein-calorie malnutrition; E88.09 Other disorders of plasma-protein metabolism, not elsewhere classified; I48.91 Unspecified atrial fibrillation; I50.32 Chronic diastolic (congestive) heart failure; D50.9 Iron deficiency anemia, unspecified; E05.90 Thyrotoxicosis, unspecified without thyrotoxic crisis or storm; F03.90 Unspecified dementia, unspecified severity, without behavioral disturbance, psychotic disturbance, mood disturbance, and anxiety; G40.909 Epilepsy, unspecified, not intractable, without status epilepticus; I25.10 Atherosclerotic heart disease of native coronary artery without angina pectoris; J44.9 Chronic obstructive pulmonary disease, unspecified; J45.909 Unspecified asthma, uncomplicated; Z68.24 Body mass index [BMI] 24.0-24.9, adult
CPT/HCPCS: 36415; 80048-TC; 80053-TC; 80164-TC; 82728-TC; 83540-TC; 83735-TC; 84439-TC; 84443-TC; 85025-TC; 87081-TC; 93971-TC; A4606; J0515; J1630; J2060; Z7610